=== PATIENT | female | born 1990 | race Hispanic/Latino ===

== ENCOUNTER 2017-09-30 21:17 | Emergency (ER) | payer MEDICAID, OTHER ==
[2017-09-30 21:45] VITALS: BP 115/76; PULSE 72; RESP 16; TEMP 98.3; O2SAT 99
--- NOTE | 2017-09-30 22:44 | C.PDOC ---
History Of Present Illness 26 years old female presents to ED for complaints of experiencing an anxiety attack [employer]. Patient states she was walking then suddenly started panicking. Patient states symptoms are associated with feeling chest tightness. Patient reports experiencing similar symptoms last week. Patient also states Hx of anxiety attacks since she was a teenager. Denies taking any medications for symptoms, SI, HI, or depression. Time Seen by Provider: 09/30/17 22:07 Chief Complaint (Nursing): Anxiety History Per: Patient History/Exam Limitations: no limitations Onset/Duration Of Symptoms: Hrs Current Symptoms Are (Timing): Still Present Suicide/Self Injury Attempted (Context): None Modifying Factor(s): None Associated Symptoms: Anxiety. denies: Anger, Depression, Suicidal Thoughts, Suicidal Plan Involuntary Hold By: None Recent travel outside of the [place]: No Past Medical History Reviewed: Historical Data, Nursing Documentation, Vital Signs Vital Signs: Last Vital Signs Temp 98.3 F 09/30/17 21:42 Pulse 72 09/30/17 21:42 Resp 16 09/30/17 21:42 BP 115/76 09/30/17 21:42 Pulse Ox 99 09/30/17 23:14 - Medical History PMH: No Chronic Diseases Family History: States: Unknown Family Hx - Social History Hx Alcohol Use: No Hx Substance Use: No - Immunization History Hx Tetanus Toxoid Vaccination: No Hx Influenza Vaccination: No Hx Pneumococcal Vaccination: No Review Of Systems Constitutional: Negative for: Fever, Chills Gastrointestinal: Negative for: Nausea, Vomiting, Abdominal Pain, Diarrhea Skin: Negative for: Rash Neurological: Negative for: Weakness, Numbness Psych: Positive for: Anxiety. Negative for: Depression, Suicidal ideation Physical Exam - Physical Exam Appears: Well, Non-toxic, No Acute Distress Skin: Normal Color, Warm, Dry, No Rash Head: Atraumatic, Normacephalic Eye(s): bilateral: Normal Inspection, PERRL, EOMI Nose: Normal, No Discharge Oral Mucosa: Moist Teeth: Edentulous Neck: Supple Chest: Symmetrical, No Tenderness Cardiovascular: Rhythm Regular, No Murmur Respiratory: Normal Breath Sounds, No Decreased Breath Sounds, No Rales, No Rhonchi, No Wheezing Gastrointestinal/Abdominal: Soft, No Tenderness Extremity: Normal ROM Extremity: Bilateral: Atraumatic, Normal Color And Temperature, Normal ROM Neurological/Psych: Oriented x3 (Awake and alert ), Normal Speech (Speaking in full sentences ), Other (No focal deficits ) Gait: Steady ED Course And Treatment O2 Sat by Pulse Oximetry: 99 (RA) Pulse Ox Interpretation: Normal Progress Note: Re-Evaluation: - Patient states she currently feels better. - Patient was seen by crisis and given a referral to [facility]. - Ordered EKG, but patient eloped before EKG was performed Disposition - Disposition Disposition: ELOPEMENT - ER ONLY Disposition Time: 22:43 Condition: STABLE Forms: [employer] (Irish) - Clinical Impression Clinical Impression: Anxiety - PA / FEED BLENDER / Resident Statement MD/DO has reviewed & agrees with the documentation as recorded. - Scribe Statement The provider has reviewed the documentation as recorded by the Dulceibnida Gresham All medical record entries made by the Dulceibnida were at my direction and personally dictated by me. I have reviewed the chart and agree that the record accurately reflects my personal performance of the history, physical exam, medical decision making, and the department course for this patient. I have also personally directed, reviewed, and agree with the discharge instructions and disposition.
== END 2017-09-30 22:07 | disposition left against medical advice (07) ==
LOC: C.ER 21:17
DX: F41.9 Anxiety disorder, unspecified (principal)

== ENCOUNTER 2018-02-03 09:38 | Emergency (ER) | payer MEDICAID ==
[2018-02-03 09:43] VITALS: BP 117/78; PULSE 93; RESP 17; TEMP 98.2; O2SAT 99
--- NOTE | 2018-02-03 09:59 | C.PDOC ---
History Of Present Illness 27 y/o female presents to the ED with complaints of mid to low back pain, onset Saturday. 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 She reports taking advil without significant relief. Denies any associated fall, bowel/bladder dysfunction, difficulty ambulating, paresthesias or weakness to legs. No other complaints offered at this time. Time Seen by Provider: 02/03/18 09:49 Chief Complaint (Nursing): Back Pain History Per: Patient History/Exam Limitations: no limitations Onset/Duration Of Symptoms: Days Current Symptoms Are (Timing): Still Present Quality Of Discomfort: "Pain" Description Of Injury (Context): Patient was helping EMT lift her patient onto stretcher Past Medical History Reviewed: Historical Data, Nursing Documentation, Vital Signs Vital Signs: Last Vital Signs Temp 98.2 F 02/03/18 09:40 Pulse 93 H 02/03/18 09:40 Resp 17 02/03/18 09:40 BP 117/78 02/03/18 09:40 Pulse Ox 99 02/03/18 09:40 - Medical History PMH: Asthma Family History: States: Unknown Family Hx - Social History Hx Alcohol Use: No Hx Substance Use: No - Immunization History Hx Tetanus Toxoid Vaccination: No Hx Influenza Vaccination: No Hx Pneumococcal Vaccination: No Review Of Systems Except As Marked, All Systems Reviewed And Found Negative. Constitutional: Negative for: Fever Gastrointestinal: Negative for: Abdominal Pain Genitourinary: Negative for: Dysuria, Frequency, Incontinence Musculoskeletal: Positive for: Back Pain. Negative for: Leg Pain Skin: Negative for: Rash Neurological: Negative for: Weakness, Numbness, Incoordination Physical Exam - Physical Exam Appears: Non-toxic, No Acute Distress Skin: Warm, Dry, No Rash Head: Atraumatic, Normacephalic Eye(s): bilateral: PERRL, EOMI Oral Mucosa: Moist Neck: Normal ROM Chest: Symmetrical Cardiovascular: Rhythm Regular, Other (Normal S1,S2) Respiratory: Other (Normal inspiratory effort, lungs clear to auscultation) Gastrointestinal/Abdominal: Soft, No Tenderness, No Distention Back: No CVA Tenderness, No Vertebral Tenderness, Paraspinal Tenderness (Mild tenderness to paralumbar region) Extremity: Bilateral: Atraumatic, Normal Color And Temperature, Normal ROM Neurological/Psych: Oriented x3, Normal Motor (Motor strength 5/5), Normal Sensation Gait: Steady ED Course And Treatment O2 Sat by Pulse Oximetry: 99 (RA) Pulse Ox Interpretation: Normal Medical Decision Making Medical Decision Making: Impression: Low back pain Initial Plan: POC urine preg ordered. Urine preg negative. Patient will be discharged home on Flexeril and Motrin. Counseled regarding diagnosis and follow up instructions. Disposition Counseled Patient/Family Regarding: Diagnosis, Need For Followup, Rx Given - Disposition Disposition: HOME/ ROUTINE Disposition Time: 10:00 Condition: GOOD Additional Instructions: EDWIN TREJO, thank you for letting us take care of you today. Your provider was Chantel Bryan MD and you were treated for BACK PAIN. The emergency medical care you received today was directed at your acute symptoms. If you were prescribed any medication, please fill it and take as directed. It may take several days for your symptoms to resolve. Return to the Emergency Department if your symptoms worsen, do not improve, or if you have any other problems. Please contact your doctor for follow up appointment in 1-2 days. Bring any paperwork you were given at discharge with you along with any medications you are taking to your follow up visit. Our treatment cannot replace ongoing medical care by a primary care provider outside of the emergency department. Thank you for allowing the [facility] team to be part of your care today. Prescriptions: Cyclobenzaprine [Flexeril] 5 mg PO TID PRN #20 tab PRN Reason: Muscle Spasm Ibuprofen [Motrin Tab] 800 mg PO TID PRN #30 tab PRN Reason: Pain, Moderate (4-7) Instructions: Lumbar Muscle Strain (DC) Forms: [facility] (Thai), General Discharge Instructions - POA Present On Arrival: None - Clinical Impression Clinical Impression: Low back strain - Scribe Statement The provider has reviewed the documentation as recorded by the Scribe (Radha Colon) Provider Attestation: All medical record entries made by the Scribe were at my direction and personally dictated by me. I have reviewed the chart and agree that the record accurately reflects my personal performance of the history, physical exam, medical decision making, and the department course for this patient. I have also personally directed, reviewed, and agree with the discharge instructions and disposition.
== END 2018-02-03 10:20 | disposition home or self-care (01) ==
LOC: C.ER 09:38
DX: S39.012A Strain of muscle, fascia and tendon of lower back, initial encounter (principal); X50.0XXA Overexertion from strenuous movement or load, initial encounter; Y93.F2 Activity, caregiving, lifting; Y92.89 Other specified places as the place of occurrence of the external cause; Y99.0 Civilian activity done for income or pay

== ENCOUNTER 2018-07-29 13:12 | Emergency (ER) | payer MEDICAID ==
[2018-07-29] MEDS ORDERED: Lidocaine 5% Patch TD STA (14:15)
[2018-07-29 14:41] LABS: HCG,QUALITATIVE URINE NEGATIVE (NEGATIVE)
[2018-07-29] MEDS ORDERED: Lidocaine 5% Patch TD ONE (14:44)
[2018-07-29 14:55] LABS: SQUAMOUS EPITHIAL 10 /hpf (0-5); URINE BACTERIA RARE (<OCC); URINE BILIRUBIN NEGATIVE (NEGATIVE); URINE CLARITY Hazy (Clear); URINE COLOR Yellow (YELLOW); URINE GLUCOSE (UA) NORMAL (Normal); URINE LEUKOCYTE ESTERASE 3+ Leu/uL (Negative); URINE PROTEIN 1+ mg/dL (NEGATIVE); URINE UROBILINOGEN NORMAL mg/dL (0.2-1.0)
[2018-07-29 14:56] LABS: URINE BLOOD TRACE-INTACT (NEGATIVE)
--- NOTE | 2018-07-29 15:26 | C.PDOC ---
History Of Present Illness 27-year-old female presents to the ED for evaluation of mid-back pain which began one week ago. 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 Patient states she has been seen by her PMD and prescribed Motrin, Tylenol, and given a back brace but her pain has continued. She denies fever, chills, dysuria, hematuria, radiation of pain to her legs, sensory changes, abdominal pain, urinary retention, bowel/bladder incontinence. Time Seen by Provider: 07/29/18 14:00 Chief Complaint (Nursing): Back Pain History Per: Patient History/Exam Limitations: no limitations Onset/Duration Of Symptoms: Other (one week ) Current Symptoms Are (Timing): Still Present Quality Of Discomfort: "Pain" Previous Symptoms: Back Pain (mid) Associated Symptoms: denies: Incontinence, New Weakness, New Numbness Additional History Per: Patient Past Medical History Reviewed: Historical Data, Nursing Documentation, Vital Signs Vital Signs: Last Vital Signs Temp 97.7 F 07/29/18 13:40 Pulse 94 H 07/29/18 13:40 Resp 18 07/29/18 13:40 BP 116/76 07/29/18 13:40 Pulse Ox 99 07/29/18 13:40 Primary Care Provider: Carlotta Ortez - Medical History PMH: Asthma Surgical History: No Surg Hx Family History: States: No Known Family Hx - Social History Hx Alcohol Use: No Hx Substance Use: No - Immunization History Hx Tetanus Toxoid Vaccination: No Hx Influenza Vaccination: No Hx Pneumococcal Vaccination: No Review Of Systems Constitutional: Negative for: Fever, Chills Genitourinary: Negative for: Dysuria, Hematuria Musculoskeletal: Positive for: Back Pain (mid). Negative for: Leg Pain Neurological: Negative for: Weakness, Numbness Physical Exam - Physical Exam Appears: Well, Non-toxic, No Acute Distress, Other (in mild discomfort ) Skin: Warm, Dry, Other (scattered psoriatic patches on abdomen and extremities ) Head: Atraumatic, Normacephalic Oral Mucosa: Moist Neck: Normal ROM, Supple Chest: Symmetrical, No Deformity, No Tenderness Cardiovascular: Rhythm Regular, No Murmur Respiratory: Normal Breath Sounds, No Rales, No Rhonchi, No Wheezing Gastrointestinal/Abdominal: Soft, No Tenderness, No Guarding, No Rebound Back: No CVA Tenderness, Other (tenderness to palpation around T12-L1 area) Extremity: Normal ROM, Capillary Refill (less than 2 seconds ) Neurological/Psych: Oriented x3, Normal Speech, Normal Cognition Gait: Steady ED Course And Treatment - Laboratory Results Lab Results: Urine Color Yellow (YELLOW) 07/29/18 14:24 Urine Clarity Hazy (Clear) 07/29/18 14:24 Urine pH 5.0 (5.0-8.0) 07/29/18 14:24 Ur Specific [place] 1.025 (1.003-1.030) 07/29/18 14:24 Urine Protein 1+ mg/dL (NEGATIVE) H 07/29/18 14:24 Urine Glucose (UA) Normal mg/dL (Normal) 07/29/18 14:24 Urine Ketones Negative mg/dL (NEGATIVE) 07/29/18 14:24 Urine Blood Trace-intact (NEGATIVE) 07/29/18 14:24 Urine Nitrate Negative (NEGATIVE) 07/29/18 14:24 Urine Bilirubin Negative (NEGATIVE) 07/29/18 14:24 Urine Urobilinogen Normal mg/dL (0.2-1.0) 07/29/18 14:24 Ur Leukocyte Esterase 3+ Anai/uL (Negative) H 07/29/18 14:24 Urine WBC (Auto) 89 /hpf (0-5) H 07/29/18 14:24 Urine RBC (Auto) 10 /hpf (0-3) H 07/29/18 14:24 Ur Squamous Epith Cells 10 /hpf (0-5) H 07/29/18 14:24 Urine Bacteria Rare (<OCC) 07/29/18 14:24 Urine HCG, Qual Negative (NEGATIVE) 07/29/18 14:24 Urine HCG, Qual Negative (NEGATIVE) 07/29/18 14:24 O2 Sat by Pulse Oximetry: 99 (on RA) Pulse Ox Interpretation: Normal Progress Note: Urinalysis ordered and reviewed. . Flexeril PO Toradol IM and lidoderm patch administered. On reassessment, patient is resting comfortably, showing no signs of distress, and reports improvement in her pain. Patient is ambulatory in the ED without distress, and is stable for discharge. Patient is advised to follow up with her PMD within 1 to 2 days for further evaluation. Reassessment Condition: Improved Disposition Counseled Patient/Family Regarding: Studies Performed, Diagnosis, Need For Followup, Rx Given - Disposition Referrals: Carlotta Ortez MD [Medical Doctor] - Disposition: HOME/ ROUTINE Disposition Time: 15:25 Condition: STABLE Additional Instructions: FOLLOW UP WITH YOUR DOCTOR IN 1-2 DAYS USE MEDICATIONS DIRECTED RETURN TO ER IF SYMPTOMS WORSEN Prescriptions: Cyclobenzaprine [Flexeril] 10 mg PO BID PRN #15 tab PRN Reason: Muscle Spasm Naproxen 375 mg PO BID PRN #20 tablet PRN Reason: pain Nitrofurantoin Macrocrystals [Macrobid] 1 cap PO BID #14 cap Instructions: Low Back Pain (DC), Urinary Tract Infection, Adult (DC) Forms: [employer] (Jamaican) Print Language: THAI - Clinical Impression Clinical Impression: Low back pain, UTI (urinary tract infection) - Scribe Statement The provider has reviewed the documentation as recorded by the Scribe (Ramandeep Plascencia) Provider Attestation: All medical record entries made by the Scribe were at my direction and personally dictated by me. I have reviewed the chart and agree that the record accurately reflects my personal performance of the history, physical exam, medical decision making, and the department course for this patient. I have also personally directed, reviewed, and agree with the discharge instructions and disposition.
[2018-07-29 15:53] VITALS: BP 113/71; PULSE 87; RESP 16; TEMP 98
[2018-07-30 00:33] VITALS: O2SAT 99
== END 2018-07-29 15:42 | disposition home or self-care (01) ==
LOC: C.ER 13:12
DX: N39.0 Urinary tract infection, site not specified (principal); M54.5 Low back pain
CPT/HCPCS: 81001; 84703; 87086; 96372; 99283; J1885